=== PATIENT | male | born 1965 | race African-American/Black ===

== ENCOUNTER 2019-04-17 20:47 | Emergency (ER) | payer MEDICARE, OTHER ==
[~2019-04-17] VITALS: Ht 185.4 cm; Wt 117.9 kg
[2019-04-17 20:53] VITALS: BP 130/89
[2019-04-17] MEDS ORDERED: SILVER SULFADIAZINE CREAM 25 GM TUBE ONE (21:06)
[2019-04-17] MEDS ORDERED: SILVER SULFADIAZINE CREAM 25 GM TUBE TP ONE (21:30)
== END 2019-04-17 21:13 | disposition home or self-care (01) ==
LOC: ER 20:57
DX: T24.111A Burn of first degree of right thigh, initial encounter (principal); I11.0 Hypertensive heart disease with heart failure; I50.9 Heart failure, unspecified; J44.9 Chronic obstructive pulmonary disease, unspecified; E10.9 Type 1 diabetes mellitus without complications; Z98.890 Other specified postprocedural states; Z91.09 Other allergy status, other than to drugs and biological substances; X11.8XXA Contact with other hot tap-water, initial encounter; Y93.89 Activity, other specified; Y92.89 Other specified places as the place of occurrence of the external cause; Y99.8 Other external cause status